=== PATIENT | male | born 1965 | race Caucasian/White ===

== ENCOUNTER 2018-05-15 12:20 | Observation (INO) ==
--- NOTE | 2018-05-15 13:18 | ED ---
HPI General Chief Complaint: Chest Pain Stated Complaint: chest pain Time Seen by Provider: 05/15/18 12:29 Source: patient Mode of arrival: ambulatory Limitations: no limitations History of Present Illness HPI narrative: This is a 52-year-old man who presents to the emergency department complaining of chest pain and pressure. He describes a pressure is rating into the back and into the back of his head. He has had symptoms intermittently for several months but over the past several weeks is gotten significantly worse. There was been constant today. He has had progressive dyspnea on exertion. He is put on a substantial amount of weight recently and this however they have been getting progressively review of systems is positive for some occasional heart fluttering. He has a history of factor V Leiden, DVT PE, and is on warfarin. His chronic leg swelling that he attributes to venous disease from his previous DVTs. Wears compression stockings on the left. Takes Lasix periodically. Has not noticed any significant change. Related Data Home Medications Medication Instructions Recorded Confirmed furosemide [Lasix] 20 mg PO DAILY 05/15/18 05/15/18 lisinopril-hydrochlorothiazide 1 tab PO DAILY 05/15/18 05/15/18 pantoprazole [Protonix] 40 mg PO DAILY 05/15/18 05/15/18 simvastatin [Zocor] 40 mg PO QPM 05/15/18 05/15/18 warfarin 5 mg PO DAILY 05/15/18 05/15/18 Allergies Allergy/AdvReac Type Severity Reaction Status Date / Time No Known Allergies Allergy Verified 05/15/18 12:28 Review of Systems ROS: all other systems reviewed are negative [facility] Medical History Medical History DVT (deep venous thrombosis) (Chronic) Diabetes (Chronic) Factor V Leiden (Chronic) Hypertension (Chronic) Pulmonary embolism (Chronic) [place] filter in place (Inactive) Surgical History Surgical History Hx of cardiac cath (Inactive) Hx of tonsillectomy (Inactive) Social History Social History Substance History: No History of Abuse Second Hand Smoke Exposure: No Smoking Status: Former smoker Tobacco Type: Cigarettes How Often Do You Have a Drink Containing Alcohol: Never Recent Travel in [facility] within the Last 8 Weeks: No Recent Out of Country Travel within the Last 8 Weeks: No Exam Narrative Exam Narrative: GENERAL: 52-year-old man, obese, nontoxic, no acute distress. SKIN: Focused skin assessment warm/dry. HEAD: Atraumatic. Normocephalic. EYES: Pupils equal and round. No scleral icterus. No injection or drainage. ENT: No nasal bleeding or discharge. Mucous membranes pink and moist. NECK: Trachea midline. No JVD. CARDIOVASCULAR: Regular rate and rhythm. No murmur appreciated. RESPIRATORY: No accessory muscle use. Clear to auscultation. Breath sounds equal bilaterally. GASTROINTESTINAL: Abdomen soft, non-tender, nondistended. Hepatic and splenic margins not palpable. MUSCULOSKELETAL: Chronic edema bilateral lower extremities. NEUROLOGICAL: Awake and alert. No obvious cranial nerve deficits. Motor grossly within normal limits. Normal speech. PSYCHIATRIC: Appropriate mood and affect; insight and judgment normal. Course Initial Documented Vital Signs Pulse Rate 85 05/15/18 12:23 Respiratory Rate 15 05/15/18 12:23 Blood Pressure 162/89 H 05/15/18 12:23 Pulse Oximetry 97 05/15/18 12:23 Last Documented Vital Signs Temperature 97.8 F 05/15/18 15:00 Pulse Rate 76 05/15/18 15:00 Respiratory Rate 17 05/15/18 15:00 Blood Pressure 124/85 05/15/18 15:00 Pulse Oximetry 98 05/15/18 15:00 Medical Decision Making MDM Narrative Medical decision making narrative: 52-year-old man presents to the emergency department with chest pressure shortness of breath leg swelling. History of thrombophilia. Will check CT pulmonary angiogram. He is on warfarin if negative, will recommend chest pain center evaluation for stress testing. 1550 p.m. Patient was seen by ED physician and signed out to me. Medical Screen Exam Complete: Yes Emergency Medical Condition: Yes Lab Data Lab results reviewed: Yes I reviewed the patient's lab results. Result diagrams: 05/15/18 13:00 05/15/18 13:00 Lab Results 05/15/18 05/15/18 05/15/18 Range/Units 13:00 13:00 13:00 WBC 8.6 (4.0-11.0) th/mm3 RBC 4.41 L (4.50-5.90) mil/mm3 Hgb 13.7 (13.0-17.0) gm/dL Hct 41.0 (39.0-51.0) % MCV 93.2 (80.0-100.0) fL MCH 31.0 (27.0-34.0) pg MCHC 33.3 (32.0-36.0) % RDW 13.4 (11.6-17.2) % Plt Count 204 (150-450) th/mm3 MPV 8.4 (7.0-11.0) fL Neut % (Auto) 65.7 (16.0-70.0) % Lymph % (Auto) 24.6 (9.0-44.0) % [place] % (Auto) 8.0 (0.0-8.0) % Eos % (Auto) 1.0 (0.0-4.0) % Baso % (Auto) 0.7 (0.0-2.0) % Neut # (Auto) 5.7 (1.8-7.7) th/mm3 Lymph # (Auto) 2.1 (1.0-4.8) th/mm3 [place] # (Auto) 0.7 (0.0-0.9) th/mm3 Eos # (Auto) 0.1 (0.0-0.4) th/mm3 Baso # (Auto) 0.1 (0.0-0.2) th/mm3 WBC Differential . Differential Comment Auto diff final PT 25.0 H (9.8-11.6) sec INR 2.5 Ratio APTT 37.3 H (24.3-30.1) sec Sodium 137 (136-145) meq/L Potassium 4.1 (3.5-5.1) meq/L Chloride 98 (98-107) meq/L Carbon Dioxide 32.8 H (21.0-32.0) meq/L Anion Gap 6 (5-15) meq/L BUN 21 H (7-18) mg/dL Creatinine 1.37 H (0.60-1.30) mg/dL Estimated GFR 54 L (>89) mL/min Random Glucose 175 H (74-106) mg/dL Calcium 8.8 (8.5-10.1) mg/dL Total Bilirubin 0.4 (0.2-1.0) mg/dL AST 14 L (15-37) U/L ALT 28 (12-78) U/L Alkaline Phosphatase 65 (45-117) U/L Troponin I Less than 0.02 L (0.02-0.05) ng/mL Total Protein 7.3 (6.4-8.2) g/dL Albumin 3.4 (3.4-5.0) g/dL Lipase 87 (73-393) U/L Imaging Data Attestation: I personally reviewed and interpreted this imaging study as follows : Radiologist's impression: Chest CTA 05/15/18 12:59 CONCLUSION: 1. This study is negative for pulmonary embolism. ECG Data Attestation: I personally reviewed and interpreted this ECG as follows: Interpretation: Normal sinus rhythm at a rate of 75, normal axis, normal intervals, no acute ischemia. Discharge Plan Discharge Disposition Patient Disposition: 30 Still Patient Discharge Details Diagnosis: Chest pain Physicians Team ED Provider: Lizandro Bosch Primary Care Provider: UNKNOWN, Rxs /Orders / Referrals /Forms Prescriptions: No Action simvastatin [Zocor] 40 mg Tablet 40 mg PO QPM RF: 0 pantoprazole [Protonix] 40 mg Tablet,Delayed Release (Dr/Ec) 40 mg PO DAILY RF: 0 warfarin 5 mg Tablet 5 mg PO DAILY RF: 0 lisinopril-hydrochlorothiazide 20-25 mg Tablet 1 tab PO DAILY RF: 0 furosemide [Lasix] 20 mg Tablet 20 mg PO DAILY RF: 0 Discharge Instructions Patient Printed Instructions: Chest Pain (ED) Discharge Interventions Interventions: Vital Signs Last Done: 05/15/18 13:35 Status ED Status: With Nurse
[2018-05-15 13:30] LABS: Baso # (Auto) 0.1 th/mm3 (0.0-0.2); Baso % (Auto) 0.7 % (0.0-2.0); Eos # (Auto) 0.1 th/mm3 (0.0-0.4); Hemoglobin 13.7 gm/dL (13.0-17.0); Lymph # (Auto) 2.1 th/mm3 (1.0-4.8); Lymph % (Auto) 24.6 % (9.0-44.0); Mean Corpuscular HGB Conc 33.3 % (32.0-36.0); Mean Corpuscular Volume 93.2 fL (80.0-100.0); Mean Platelet Volume 8.4 fL (7.0-11.0); Mono # (Auto) 0.7 th/mm3 (0.0-0.9); Neut # (Auto) 5.7 th/mm3 (1.8-7.7); Neut % (Auto) 65.7 % (16.0-70.0); Platelet Count 204 th/mm3 (150-450); Red Blood Count 4.41 mil/mm3 (4.50-5.90); Red Cell Distribution Width 13.4 % (11.6-17.2); White Blood Count 8.6 th/mm3 (4.0-11.0)
[2018-05-15 13:36] LABS: Activated Partial Thrombo Time 37.3 sec (24.3-30.1); INR 2.5 Ratio
[2018-05-15 13:45] LABS: Alanine Aminotransferase 28 U/L (12-78); Albumin 3.4 g/dL (3.4-5.0); Anion Gap 6 meq/L (5-15); Aspartate Aminotransferase 14 U/L (15-37); Blood Urea Nitrogen 21 mg/dL (7-18); Calcium 8.8 mg/dL (8.5-10.1); Carbon Dioxide 32.8 meq/L (21.0-32.0); Chloride 98 meq/L (98-107); Glomerular Filtration Rate 54 mL/min (>89); Glucose,Random 175 mg/dL (74-106); Lipase 87 U/L (73-393); Potassium 4.1 meq/L (3.5-5.1); Sodium 137 meq/L (136-145)
[2018-05-15 13:49] LABS: Alkaline Phosphatase 65 U/L (45-117); Total Protein 7.3 g/dL (6.4-8.2)
--- NOTE | 2018-05-15 15:13 | CT ---
EXAM DATE: 05/15/2018 3:05 PM EDT AGE/SEX: 52 years / Male INDICATIONS: Chest pressure today CLINICAL DATA: This is the patient's initial encounter. Patient reports that signs and symptoms have been present for 1 day and indicates a pain score of 2/10. MEDICAL/SURGICAL HISTORY: Diabetes. Hypertension. Factor 5 leiden None. RADIATION DOSE: 10.63 CTDI (mGy) COMPARISON: No prior exams available for comparison. TECHNIQUE: Volumetric scanning was performed using a multi-row detector CT scanner during bolus infu ayaz of 75 ml Omnipaque 350 (iohexol) nonionic water-soluble contrast as a single exam dose. The juanito a was post processed with a variety of visualization algorithms including full volume maximum intensi ty projection and sliding thin slab reformation. Using automated exposure control and adjustment of t he mA and/or kV according to patient size, radiation dose was kept as low as reasonably achievable to obtain optimal diagnostic quality images. DICOM format image data is available electronically for r eview and comparison. FINDINGS: Pulmonary Arteries: No filling defects are seen in the pulmonary arteries out to the subsegmental ve ssels. The left and right pulmonary arteries are normal in diameter. Lung: No infiltrates seen. Effusion: None. Mediastinum: No evidence of mediastinal or hilar adenopathy. Other: The axilla is unremarkable. CONCLUSION: 1. This study is negative for pulmonary embolism. Electronically signed by: Lizandro Hudson MD 05/15/2018 3:11 PM EDT
--- NOTE | 2018-05-15 17:15 | P.HPCA ---
History of Present Illness Primary Care Physician: UNKNOWN Chief Complaint: Chest pain History of Present Illness: This is a 52-year-old male with history of hypertension, hyperlipidemia, factor V Leiden with prior PEs and DVTs on chronic warfarin therapy that presents to ED complaining of chest and back pain that has been on and off for the last 6 months. States is little bit more intense today prompting him to come to the ED. Describes as a heaviness. Nothing in particular seems to bring it on, states is random. When it occurs it can last for a few minutes to hours. He gets short of breath with it. Denies nausea or diaphoresis. Denies recent cardiac workup. States he had a heart cath about 12 years ago that was okay but it was 12 years ago. Currently denies chest discomfort. Hypertension, hyperlipidemia, factor V Leiden with history of PEs and DVTs. Denies known CAD and diabetes. His mother had a CABG. He quit smoking 4 years ago but prior that he smoked about a pack a day for 30 years. Denies alcohol or illicit drug use. - Diagnosis (1) Chest pain (2) Hypertension (3) Hyperlipidemia (4) Obesity Review of Systems General: Patient denies fevers, chills, and recent travel. HEENT: Patient denies headache, sore throat, difficulty swallowing. Cardiovascular: Has the chest discomfort as mentioned above. Denies sensation of heart beating rapidly or irregularly. No syncope. Denies diaphoresis. Respiratory: At times short of breath. Denies inspirational chest discomfort. Denies coughing wheezing or hemoptysis. GI: Patient denies nausea, vomiting, diarrhea, abdominal pain, bloody stools. Musculoskeletal: Patient denies joint pain or edema. Denies calf pain or edema. Neurovascular: Patient denies numbness, tingling, weakness in extremities. Denies headache. Endocrine: Denies polyuria and polydipsia. Hematologic: Denies easy bruising. Skin: Denies rash or itching. PMFSH - History History Provided By: Patient - Medical History Medical History: Medical History (Last Reviewed 05/15/18 @ 13:28 by Raina Mcneil) Diabetes Hypertension [place] filter in place DVT (deep venous thrombosis) Factor V Leiden Pulmonary embolism - Surgical History Surgical History: Surgical History (Last Reviewed 05/15/18 @ 13:28 by Raina Mcneil) Hx of cardiac cath Hx of tonsillectomy - Tobacco History Second Hand Smoke Exposure: No Tobacco Use In Past 30 Days: No Smoking Status: Former smoker Tobacco Type: Cigarettes - Alcohol History How Often Do You Have a Drink Containing Alcohol: Never - Substance Use History Substance History: No History of Abuse - Travel History Recent Travel in the [place] Within the Last 8 Weeks: No Recent Travel Out of the Country Within the Last 8 Weeks: No - Immunization History Tetanus Immunization: >5 Years Medications and Allergies Active Medications: Active Medications Hydrocodone Bitart/Acetaminophen ([place] 7.5/325) 1 tab PO Q6H PRN PRN Reason: pain scale 6-10 Albuterol (Duoneb Neb (Prn)) 1 ampul NEB Q4HR NEB PRN PRN Reason: SHORTNESS OF BREATH/WHEEZING Clonidine HCl ([place]) 0.1 mg PO Q6H PRN PRN Reason: SBP >165 OR DBP > 110 Ondansetron HCl (Zofran Inj) 4 mg IV.PUSH Q6H PRN PRN Reason: NAUSEA OR VOMITING Sodium Chloride (Ns Flush) 2 ml IV.FLUSH BID YAKOV Sodium Chloride (Ns Flush) 2 ml IV.FLUSH PRN PRN PRN Reason: FLUSH AFTER USING IV ACCESS Allergies Allergy/AdvReac Type Severity Reaction Status Date / Time No Known Allergies Allergy Verified 05/15/18 12:28 Home Medications Medication Instructions Recorded Confirmed Type furosemide [Lasix] 20 mg PO DAILY 05/15/18 05/15/18 History lisinopril-hydrochlorothiazide 1 tab PO DAILY 05/15/18 05/15/18 History pantoprazole [Protonix] 40 mg PO DAILY 05/15/18 05/15/18 History simvastatin [Zocor] 40 mg PO QPM 05/15/18 05/15/18 History warfarin 5 mg PO DAILY 05/15/18 05/15/18 History Exam Vital signs: Vital Signs 05/15/18 12:23 05/15/18 12:59 05/15/18 13:35 Temperature 97.8 F 97.8 F Pulse Rate 85 78 78 Respiratory Rate 15 20 17 Blood Pressure 162/89 H 133/70 138/70 Pulse Oximetry 97 100 99 05/15/18 15:00 05/15/18 16:30 Temperature 97.8 F 97.7 F Pulse Rate 76 79 Respiratory Rate 17 17 Blood Pressure 124/85 127/69 Pulse Oximetry 98 100 Intake & Output 05/14/18 05/15/18 05/15/18 18:59 06:59 18:59 Weight 181.437 kg Narrative: GENERAL: Patient is obese at 181 kg with a BMI 57. This is a well-nourished, well-developed patient, in no apparent distress. Patient speaks in clear complete sentences. Patient is pleasant. HEENT: Head is atraumatic and normocephalic. Neck is supple without lymphadenopathy and trachea is midline. No JVD or carotid bruits. CARDIOVASCULAR: Regular rate and rhythm without murmurs, gallops, or rubs. RESPIRATORY: Clear to auscultation. Breath sounds equal bilaterally. No wheezes , rales, or rhonchi. Chest wall is nontender. No use of accessory muscles. GASTROINTESTINAL: Abdomen is nontender, nondistended. Abdomen soft. No obvious pulsatile mass or bruit. No CVA tenderness. Strong femoral pulses bilaterally. Normal bowel sounds in all quadrants. MUSCULOSKELETAL: Patient is moving upper and lower extremities freely. No calf tenderness or edema, no Homans sign. Strong pulses in upper and lower extremities. NEUROLOGICAL: Patient is alert and oriented. Cranial nerves 2-12 are grossly intact. No focal deficits and speech is clear. SKIN: No rash and turgor is normal. Results 05/15/18 13:00 05/15/18 13:00 Cardiac Enzymes 05/15/18 05/15/18 05/15/18 Range/Units 13:00 13:00 15:15 AST 14 L (15-37) U/L Troponin I Less than 0.02 L Less than 0.02 L (0.02-0.05) ng/mL B-Natriuretic Peptide 33 (0-100) pg/mL Coagulation 05/15/18 05/15/18 Range/Units 13:00 13:00 PT 25.0 H (9.8-11.6) sec APTT 37.3 H (24.3-30.1) sec B-Natriuretic Peptide 33 (0-100) pg/mL CBC 05/15/18 Range/Units 13:00 WBC 8.6 (4.0-11.0) th/mm3 RBC 4.41 L (4.50-5.90) mil/mm3 Hgb 13.7 (13.0-17.0) gm/dL Hct 41.0 (39.0-51.0) % Plt Count 204 (150-450) th/mm3 Neut # (Auto) 5.7 (1.8-7.7) th/mm3 Lymph # (Auto) 2.1 (1.0-4.8) th/mm3 [place] # (Auto) 0.7 (0.0-0.9) th/mm3 Eos # (Auto) 0.1 (0.0-0.4) th/mm3 Baso # (Auto) 0.1 (0.0-0.2) th/mm3 Comprehensive Metabolic Panel 05/15/18 Range/Units 13:00 Sodium 137 (136-145) meq/L Potassium 4.1 (3.5-5.1) meq/L Chloride 98 (98-107) meq/L Carbon Dioxide 32.8 H (21.0-32.0) meq/L BUN 21 H (7-18) mg/dL Creatinine 1.37 H (0.60-1.30) mg/dL Calcium 8.8 (8.5-10.1) mg/dL AST 14 L (15-37) U/L ALT 28 (12-78) U/L Alkaline Phosphatase 65 (45-117) U/L Total Protein 7.3 (6.4-8.2) g/dL Albumin 3.4 (3.4-5.0) g/dL Intake and Output 05/15/18 05/15/18 05/15/18 06:59 14:59 22:59 Other: Weight 181.437 kg Patient Weight 05/16/18 06:59 Weight 181.437 kg - Imaging and Cardiology Imaging: Impressions Chest CTA 05/15/18 12:59 CONCLUSION: 1. This study is negative for pulmonary embolism. EKG interpretations - EKG EKG shows: sinus rhythm Caprini VTE Risk Assessment Caprini VTE Risk Assessment: No/Low Risk (score <= 1) Caprini Risk Assessment Model: Point Value = 1 Point Value = 2 Point Value = 3 Point Value = 5 Age 41-60 Minor surgery BMI > 25 kg/m2 Swollen legs Varicose veins or History of unexplained or recurrent spontaneous Oral contraceptives or hormone replacement Sepsis (< 1 month) Serious lung disease, including pneumonia (< 1 month) Abnormal pulmonary function Acute myocardial infarction Congestive heart failure (< 1 month) History of inflammatory bowel disease Medical patient at bed rest Age 61-74 Arthroscopic surgery Major open surgery (> 45 min) Laparoscopic surgery (> 45 min) Malignancy Confined to bed (> 72 hours) Immobilizing plaster cast Central venous access Age >= 75 History of VTE Family history of VTE Factor V Leiden Prothrombin [id number] Lupus anticoagulant Anticardiolipin antibodies Elevated serum homocysteine Heparin-induced thrombocytopenia Other congenital or acquired thrombophilia Stroke (< 1 month) Elective arthroplasty Hip, pelvis, or leg fracture Acute spinal cord injury (< 1 month) Prophylaxis Regimen: Total Risk Factor Score Risk Level Prophylaxis Regimen 0-1 Low Early ambulation 2 Moderate Order ONE of the following: *Sequential Compression Device (SCD) *Heparin 5000 units SQ BID 3-4 Higher Order ONE of the following medications: *Heparin 5000 units SQ TID *Enoxaparin/Lovenox 40 mg SQ daily (WT < 150 kg, CrCl > 30 mL/min) *Enoxaparin/Lovenox 30 mg SQ daily (WT < 150 kg, CrCl > 10-29 mL/min) *Enoxaparin/Lovenox 30 mg SQ BID (WT < 150 kg, CrCl > 30 mL/min) AND/OR *Sequential Compression Device (SCD) 5 or more Highest Order ONE of the following medications: *Heparin 5000 units SQ TID (Preferred with Epidurals) *Enoxaparin/Lovenox 40 mg SQ daily (WT < 150 kg, CrCl > 30 mL/min) *Enoxaparin/Lovenox 30 mg SQ daily (WT < 150 kg, CrCl > 10-29 mL/min) *Enoxaparin/Lovenox 30 mg SQ BID (WT < 150 kg, CrCl > 30 mL/min) AND *Sequential Compression Device (SCD) Assessment and Plan - Assessment (1) Chest pain Code(s): R07.9 - Chest pain, unspecified Status: Acute (2) Hypertension Code(s): I10 - Essential (primary) hypertension Status: Acute (3) Hyperlipidemia Code(s): E78.5 - Hyperlipidemia, unspecified Status: Acute (4) Obesity Code(s): E66.9 - Obesity, unspecified Status: Acute - Plan * Chest pain: We will continue to have serial cardiac enzymes and EKGs for ruling out purposes. Will be seen by Dr. Ogden. Patient believes he would be a walk on a treadmill, this will be attempted tomorrow if he rules out. He will be discharged home if the stress test is nonischemic with instructions to follow-up PCP. Will hold warfarin this afternoon, recheck INR in the morning. Resume his medication after stress test. * Hypertension: Continue medication. * Hyperlipidemia: Continue medication. * Obesity: Patient counseled on the importance of smoking cessation. Patient is stable at this time. He is agreeable to this plan. (1) Chest pain Qualifiers: Chest pain type: unspecified Qualified Code(s): R07.9 - Chest pain, unspecified
[2018-05-15] MEDS ORDERED: Acetaminophen 500 MG Tablet PO PRN (18:07)
[2018-05-15 20:10] LABS: Creatine Kinase 81 U/L (39-308)
--- NOTE | 2018-05-16 08:13 | P.PNCA ---
Subjective Interval history: Slept well. No new complaints. Generalized chest pressure persists, decreased somewhat but not completely. Declines pain medications other than Tylenol due to fear of becoming addicted to pain medications. Agrees with previous plan to complete exercise cardiac treadmill. Endorses exertional shortness of breath over the last 6-12 months, but states he could walk on treadmill. Medications and Allergies Active Medications: Active Medications Acetaminophen (Tylenol) 500 mg PO Q8H PRN PRN Reason: HEADACHE Last Admin: 05/15/18 18:00 Dose: 500 mg Hydrocodone Bitart/Acetaminophen ([place] 7.5/325) 1 tab PO Q6H PRN PRN Reason: pain scale 6-10 Albuterol (Duoneb Neb (Prn)) 1 ampul NEB Q4HR NEB PRN PRN Reason: SHORTNESS OF BREATH/WHEEZING Clonidine HCl (Catapres) 0.1 mg PO Q6H PRN PRN Reason: SBP >165 OR DBP > 110 Furosemide (Lasix) 20 mg PO DAILY COUNTS INCLUDE 234 BEDS AT THE [facility] Hydrochlorothiazide (Hydrodiuril) 25 mg PO DAILY YAKOV Lisinopril (Prinivil) 20 mg PO DAILY YAKOV Ondansetron HCl (Zofran Inj) 4 mg IV.PUSH Q6H PRN PRN Reason: NAUSEA OR VOMITING Pantoprazole Sodium (Protonix) 40 mg PO DAILY YAKOV Pravastatin Sodium (Pravachol) 80 mg PO QPM COUNTS INCLUDE 234 BEDS AT THE [facility] Last Admin: 05/15/18 19:25 Dose: 80 mg Sodium Chloride (Ns Flush) 2 ml IV.FLUSH BID COUNTS INCLUDE 234 BEDS AT THE [facility] Last Admin: 05/15/18 21:46 Dose: 2 ml Sodium Chloride (Ns Flush) 2 ml IV.FLUSH PRN PRN PRN Reason: FLUSH AFTER USING IV ACCESS Allergies Allergy/AdvReac Type Severity Reaction Status Date / Time No Known Allergies Allergy Verified 05/15/18 12:28 Home Medications Medication Instructions Recorded Confirmed Type furosemide [Lasix] 20 mg PO DAILY 05/15/18 05/15/18 History lisinopril-hydrochlorothiazide 1 tab PO DAILY 05/15/18 05/15/18 History pantoprazole [Protonix] 40 mg PO DAILY 05/15/18 05/15/18 History simvastatin [Zocor] 40 mg PO QPM 05/15/18 05/15/18 History warfarin 5 mg PO DAILY 05/15/18 05/15/18 History Physical Exam Vital signs: Vital Signs 05/15/18 12:23 05/15/18 12:59 05/15/18 13:35 Temperature 97.8 F 97.8 F Pulse Rate 85 78 78 Respiratory Rate 15 20 17 Blood Pressure 162/89 H 133/70 138/70 Pulse Oximetry 97 100 99 05/15/18 15:00 05/15/18 16:30 05/15/18 18:24 Temperature 97.8 F 97.7 F 98 F Pulse Rate 76 79 76 Respiratory Rate 17 17 20 Blood Pressure 124/85 127/69 114/70 Pulse Oximetry 98 100 95 05/15/18 18:37 05/15/18 20:00 05/15/18 23:36 Temperature 98.3 F 97.8 F Pulse Rate 84 79 Respiratory Rate 18 18 Blood Pressure 100/57 L 112/59 L Pulse Oximetry 97 96 94 L 05/16/18 00:00 05/16/18 04:00 05/16/18 08:00 Temperature 98.0 F 97.5 F L Pulse Rate 81 68 76 Respiratory Rate 18 16 Blood Pressure 106/53 L 127/73 Pulse Oximetry 94 L 96 Intake & Output 05/15/18 05/16/18 05/16/18 18:59 06:59 18:59 Intake Total 600 / 600 720 / 720 Balance 600 / 600 720 / 720 Weight 181.437 kg Intake: Oral 600 / 600 720 / 720 Other: # Voids 2 Date of Last Bowel Movement 05/14/18 05/14/18 Weight On Admission 181.437 kg Narrative: morbidly obese male easily awakens from sleep - Constitutional no acute distress, cooperative - Routine HEENT Exam Head: Present: normocephalic, atraumatic - Routine Respiratory Exam Present: decreased breath sounds. Absent: rhonchi, wheezes, crackles - Routine Cardiovascular Exam Present: S1, S2. Absent: murmur, gallop, rubs Results 05/15/18 13:00 05/15/18 13:00 Cardiac Enzymes 05/15/18 05/15/18 05/15/18 Range/Units 13:00 13:00 15:15 AST 14 L (15-37) U/L Troponin I Less than 0.02 L Less than 0.02 L (0.02-0.05) ng/mL B-Natriuretic Peptide 33 (0-100) pg/mL 05/15/18 Range/Units 19:26 AST (15-37) U/L Troponin I Less than 0.02 L (0.02-0.05) ng/mL B-Natriuretic Peptide (0-100) pg/mL Coagulation 05/15/18 05/15/18 Range/Units 13:00 13:00 PT 25.0 H (9.8-11.6) sec APTT 37.3 H (24.3-30.1) sec B-Natriuretic Peptide 33 (0-100) pg/mL CBC 05/15/18 Range/Units 13:00 WBC 8.6 (4.0-11.0) th/mm3 RBC 4.41 L (4.50-5.90) mil/mm3 Hgb 13.7 (13.0-17.0) gm/dL Hct 41.0 (39.0-51.0) % Plt Count 204 (150-450) th/mm3 Neut # (Auto) 5.7 (1.8-7.7) th/mm3 Lymph # (Auto) 2.1 (1.0-4.8) th/mm3 [place] # (Auto) 0.7 (0.0-0.9) th/mm3 Eos # (Auto) 0.1 (0.0-0.4) th/mm3 Baso # (Auto) 0.1 (0.0-0.2) th/mm3 Comprehensive Metabolic Panel 05/15/18 Range/Units 13:00 Sodium 137 (136-145) meq/L Potassium 4.1 (3.5-5.1) meq/L Chloride 98 (98-107) meq/L Carbon Dioxide 32.8 H (21.0-32.0) meq/L BUN 21 H (7-18) mg/dL Creatinine 1.37 H (0.60-1.30) mg/dL Calcium 8.8 (8.5-10.1) mg/dL AST 14 L (15-37) U/L ALT 28 (12-78) U/L Alkaline Phosphatase 65 (45-117) U/L Total Protein 7.3 (6.4-8.2) g/dL Albumin 3.4 (3.4-5.0) g/dL Intake and Output 05/15/18 05/16/18 05/16/18 22:59 06:59 14:59 Intake Total 600 / 600 720 / 720 Balance 600 / 600 720 / 720 Intake: Oral 600 / 600 720 / 720 Other: # Voids 2 Date of Last Bowel Movement 05/14/18 Weight 181.437 kg Weight On Admission 181.437 kg - Imaging and Cardiology Imaging: Impressions Chest CTA 05/15/18 12:59 CONCLUSION: 1. This study is negative for pulmonary embolism. Assessment and Plan - Assessment (1) Chest pain Code(s): R07.9 - Chest pain, unspecified Status: Acute Plan: Monitor on telemetry overnight. ACS ruled out 3 sets of EKGs and cardiac enzymes. Previously evaluated by Dr. Rosanna Ogden. Proceed with exercise cardiac testing this morning. If unremarkable, plans are to discharge home with follow-up with primary care provider. Agreeable to plan of care. (2) Hypertension Code(s): I10 - Essential (primary) hypertension Status: Chronic Plan: Continue HCTZ and lisinopril. Discussed importance of tight blood pressure control. Encouraged weight loss, sodium reduction, and increase daily activity. (3) Hyperlipidemia Code(s): E78.5 - Hyperlipidemia, unspecified Status: Chronic Plan: Continue pravastatin. (4) Obesity Code(s): E66.9 - Obesity, unspecified Status: Chronic Plan: Discussed dietary and lifestyle modifications that may assist him in weight lost. - Plan * Chest pain: We will continue to have serial cardiac enzymes and EKGs for ruling out purposes. Will be seen by Dr. Ogden. Patient believes he would be a walk on a treadmill, this will be attempted tomorrow if he rules out. He will be discharged home if the stress test is nonischemic with instructions to follow-up PCP. Will hold warfarin this afternoon, recheck INR in the morning. Resume his medication after stress test. * Hypertension: Continue medication. * Hyperlipidemia: Continue medication. * Obesity: Patient counseled on the importance of smoking cessation. Patient is stable at this time. He is agreeable to this plan. (1) Chest pain Qualifiers: Chest pain type: unspecified Qualified Code(s): R07.9 - Chest pain, unspecified (2) Hypertension Qualifiers: Hypertension type: unspecified Qualified Code(s): I10 - Essential (primary) hypertension (3) Hyperlipidemia Qualifiers: Hyperlipidemia type: unspecified Qualified Code(s): E78.5 - Hyperlipidemia, unspecified (4) Obesity Qualifiers: Body mass index: BMI 50.0-59.9
[2018-05-16 08:20] LABS: INR 2.4 Ratio
[2018-05-16] MEDS ORDERED: Non-Formulary Drug (Lisinopril-Hydrochlorothiazide [Lisinopril-Hydrochlorothiazide] 1 TAB) PO SCH (09:00)
[2018-05-16] MEDS ORDERED: Furosemide 20 MG Tablet PO SCH (09:00)
--- NOTE | 2018-05-16 12:51 | TR ---
Date Performed: 05/16/2018 Time Performed: 09:00:59 DOCTOR: João Hunter DRUG LIST: CLINICAL HISTORY: REASON FOR TEST: REASON FOR ENDING: OBSERVATION: CONCLUSION: Manuel protocol completed. Stopped sec to leg fatigue. tMaximum OU=756 % Max HR Achie john=86.0 Maximum BP=N/A Total Exercise Time=3:30. No reprod chest pain. Normal bp response. Poor exe rcise tolerance. No st changes at peak. Slight st depression inferior during recovery, COMMENTS: Patient exercised using the Manuel protocol. No electrocardiographic changes were seen to suggest ischemia. Hemodynamic response to exercise was normal. No significant arrhythmia was prese nt.
--- NOTE | 2018-05-16 13:35 | ECG ---
Date Performed: 05/15/2018 Time Performed: 19:25:41 PTAGE: 52 years EKG: Sinus rhythm NORMAL ECG NO PREVIOUS TRACING DOCTOR: Lizandro Sandhu Interpretating Date/Time 05/16/2018 13:32:59
[2018-05-17] MEDS ORDERED: Lisinopril 20 MG Tablet PO SCH (09:00)
[2018-05-17] MEDS ORDERED: hydroCHLOROthiazide 25 MG Tablet PO SCH (09:00)
--- NOTE | 2018-05-17 13:56 | ECG ---
Date Performed: 05/15/2018 Time Performed: 15:42:14 PTAGE: 52 years EKG: Sinus rhythm NORMAL ECG PREVIOUS TRACING : 05/15/2018 12.32 Since previous tracing, no significant change noted DOCTOR: Leonidas Tadeo Interpretating Date/Time 05/17/2018 13:55:29
--- NOTE | 2018-05-17 13:59 | ECG ---
Date Performed: 05/15/2018 Time Performed: 12:32:17 PTAGE: 52 years EKG: Sinus rhythm NORMAL ECG INTERPRETATION BASED ON A DEFAULT AGE OF 39 YEARS NO PREVIOUS TRACING DOCTOR: Leonidas Tadeo Interpretating Date/Time 05/17/2018 13:56:58
== END 2018-05-16 11:48 | disposition home or self-care (01) ==
LOC: NEPE 12:20 → NEDA 12:20 → NEPHCDU 17:09
PROVIDERS: ADMIT Internal Medicine Interventional Cardiology; ATTEND Internal Medicine Interventional Cardiology